=== PATIENT | female | born 1990 | race Caucasian/White ===

== ENCOUNTER 2016-06-02 22:43 | Emergency (ER) | payer MEDICAID, OTHER ==
[~2016-06-02] VITALS: Ht 170.2 cm; Wt 74.0 kg
[~2016-06-02 22:43] MED LIST: DENIES
[2016-06-02 22:45] VITALS: Ht 170.2 cm; Wt 74.0 kg
[2016-06-03 00:37] LABS: URINE BLOOD (Dip) POC Negative (NEGATIVE)
[2016-06-03 01:34] LABS: ADD UMIC YES; URINE BILIRUBIN (Dip) NEGATIVE (NEGATIVE); URINE BLOOD (Dip) NEGATIVE (NEGATIVE); URINE COLOR YELLOW (YELLOW); URINE GLUCOSE (Dip) NEGATIVE (NEGATIVE); URINE KETONES (Dip) NEGATIVE (NEGATIVE); URINE LEUKOCYTE ESTERASE (Dip) NEGATIVE (NEGATIVE); URINE NITRITE (Dip) NEGATIVE (NEGATIVE); URINE TOTAL PROTEIN (Dip) 1+ (NEGATIVE); URINE UROBILINOGEN (Dip) 1.0 E.U./dL (0.1-1.0)
--- NOTE | 2016-06-03 01:35 | ERD ---
ER Documentation Chief Complaint Date/Time DATE: 06/03/16 TIME: 01:30 Chief Complaint fever and right lower back pain since this am, uti symptoms x 1 month HPI 26-year-old female presents emergency department for fever and right-sided lower back pain 1 day. Patient also reports frequency and urgency with urination. Patient has dysuria. Patient has had UTI symptoms for the past month. Was diagnosed with UTI 2 weeks ago and was prescribed Cipro. Patient states after she took this medication symptoms completely resolved. After stopping medication, symptoms return. Patient states she has been traveling more frequently lately in the past month and does not urinate as often as normal. Patient took Advil about 1 hour prior to arrival. ROS All systems reviewed and are negative except as per history of present illness. Medications Home Meds Active Scripts Cephalexin* (Keflex*) 500 Mg Capsule, 500 MG PO BID for 7 Days, CAP Prov:JARETH MCDANIEL NP 06/03/16 Ibuprofen* (Motrin*) 400 Mg Tab, 400 MG PO Q6, #10 TAB Prov:JAREHT MCDANIEL NP 06/03/16 Reported Medications [Denies] No Conflict Check 10/05/09 Discontinued Scripts Ciprofloxacin Hcl* (Ciprofloxacin Hcl*) 500 Mg Tablet, 500 MG PO BID for 3 Days , TAB Prov:JARETH MCDANIEL NP 06/03/16 Allergies Allergies: Coded Allergies: No Known Drug Allergies (Verified Allergy, Mild, 10/05/09) PMhx/Soc Medical and Surgical Hx: pt denies Surgical Hx History of Surgery: No Anesthesia Reaction: No Hx Neurological Disorder: No Hx Respiratory Disorders: No Hx Cardiac Disorders: No Hx Psychiatric Problems: No Hx Miscellaneous Medical Probl: Yes (UTIs) Hx Alcohol Use: Yes Hx Substance Use: No Hx Tobacco Use: No Smoking Status: Never smoker Physical Exam Vitals Vital Signs Date Time Temp Pulse Resp B/P Pulse Ox O2 Delivery O2 Flow Rate FiO2 06/02/16 22:45 99.4 89 17 135/82 99 Physical Exam Const: No acute distress, alert Head: Atraumatic Eyes: Normal Conjunctiva ENT: Normal External Ears, Nose and Mouth. Neck: Full range of motion..~ No meningismus. Resp: Clear to auscultation bilaterally Cardio: Regular rate and rhythm, no murmurs Abd: Soft, non distended. Normal bowel sounds suprapubic tenderness on palpation. Skin: No petechiae or rashes Back: No midline or flank tenderness. No CVA tenderness Ext: No cyanosis, or edema Neur: Awake and alert Psych: Normal Mood and Affect Results 24 hrs Laboratory Tests Test 06/03/16 00:34 06/03/16 00:37 Urine Color YELLOW Urine Clarity CLEAR Urine pH 8.5 Urine Specific [place] 1.015 Urine Ketones NEGATIVE Urine Nitrite NEGATIVE Urine Bilirubin NEGATIVE Urine Urobilinogen 1.0 E.U./dL Urine Leukocyte Esterase NEGATIVE Urine Microscopic RBC 0-2/HPF Urine Microscopic WBC 0-2/HPF Urine Squamous Epithelial Cells FEW Urine Bacteria FEW Urine Hemoglobin NEGATIVE Urine Glucose NEGATIVE% Urine Total Protein 1+ Bedside Urine pH (LAB) 8.5 Bedside Urine Protein (LAB) 2+ Bedside Urine Glucose (UA) Negative Bedside Urine Ketones (LAB) Negative Bedside Urine Blood Negative Bedside Urine Nitrite (LAB) Negative Bedside Urine Leukocyte Esterase (L Negative Procedures/MDM ED COURSE: The patient was stable throughout ED course. I kept the patient and/or family informed of laboratory and diagnostic imaging results throughout the ED course. Laboratory Urine dip shows 2+ protein UA few bacteria, few squamous epithelial cells Urine culture results are pending MDM: 26-year-old female presents emergency department for fever, right-sided lower back pain, urinary frequency, urinary urgency and dysuria. Patient had recent UTI about 2 weeks ago. Patient was placed on Cipro and states symptoms resolved after taking this medication. Patient believes she has another UTI. Patient states symptoms feel exactly the same. Urine dip shows 2+ protein otherwise negative for infection. Urine culture results are pending. Patient will be prescribed antibiotics for possible UTI based on patient's symptoms. Patient requesting different medication other than Cipro for infection. Diagnosis is UTI. Low suspicion for pyelonephritis or sepsis. Patient is appropriate for outpatient management will be given prescription for Keflex and ibuprofen. Instructed patient to follow-up with primary care provider in the next 2-3 days for reassessment and additional management. Return to ED for any high fever, chest pain, difficulty breathing, shortness breath, wheezing, vomiting, diarrhea, abdominal pain or any new or worsening symptoms. Patient verbalizes understanding. All questions answered at discharge. Departure Diagnosis: Primary Impression: Dysuria Condition: Stable JARETH MCDANIEL NP Jun 03, 2016 01:35
[2016-06-03] MEDS ORDERED: CIPR500T4 PO (01:41)
[2016-06-03] MEDS ORDERED: IBUP400T22 PO (01:41)
[2016-06-03] MEDS ORDERED: CEPH-443 PO (01:56)
[2016-06-03 02:04] LABS: BACTERIA,URINE FEW; SQUAMOUS EPITHELIAL CELL,UR FEW; URINE RBCS 0-2 /HPF (0)
== END 2016-06-03 02:00 | disposition home or self-care (01) ==
LOC: FTE 22:43
DX: N39.0 Urinary tract infection, site not specified (principal)
CPT/HCPCS: 81001; 81003; 87086; 99283